=== PATIENT | female | born 1975 | race American Indian/Alaskan Native ===

== ENCOUNTER 2018-01-10 11:16 | Emergency (ER) | payer MEDICAID ==
[2018-01-10 11:16] VITALS: BMI 35.9
[2018-01-10 11:20] VITALS: O2SAT 100
[2018-01-10] MEDS ORDERED: Lidocaine 5% Patch TD STA (11:49)
[2018-01-10] MEDS ORDERED: Lidocaine 5% Patch TD ONE (11:56)
--- NOTE | 2018-01-10 12:14 | C.PDOC ---
History Of Present Illness 42-year-old female, presents to the emergency department with complaints of left lower back pain that radiates down her leg, starting yesterday. Denies nausea/vomiting, dysuria/frequency/hematuria, fever, headache, numbness/weakness , changes in bowel/bladder habits, or any other associated symptoms. No other complaints at this time. Time Seen by Provider: 01/10/18 11:36 Chief Complaint (Nursing): Lower Extremity Problem/Injury History Per: Patient History/Exam Limitations: no limitations Onset/Duration Of Symptoms: Days Current Symptoms Are (Timing): Still Present Past Medical History Reviewed: Historical Data, Nursing Documentation, Vital Signs Vital Signs: Last Vital Signs Temp 97.9 F 01/10/18 13:27 Pulse 76 01/10/18 13:27 Resp 20 01/10/18 13:27 BP 153/73 H 01/10/18 13:27 Pulse Ox 100 01/10/18 21:00 - Medical History PMH: HTN, Hypercholesterolemia, Hyperlipidemia Family History: States: No Known Family Hx - Social History Hx Alcohol Use: No Hx Substance Use: No - Immunization History Hx Tetanus Toxoid Vaccination: No Hx Influenza Vaccination: No Hx Pneumococcal Vaccination: No Review Of Systems Constitutional: Negative for: Fever Gastrointestinal: Negative for: Vomiting Genitourinary: Negative for: Incontinence Musculoskeletal: Positive for: Back Pain, Leg Pain (+buttock pain) Physical Exam - Physical Exam Appears: Well, Non-toxic, No Acute Distress Skin: Warm, Dry, No Rash Head: Normacephalic Eye(s): bilateral: PERRL Nose: Normal Oral Mucosa: Moist Lips: Normal Appearing Neck: Normal ROM Back: Other (sciatic nerve tenderness) Extremity: Other (left buttock tenderness) Neurological/Psych: Oriented x3, Normal Speech ED Course And Treatment - Laboratory Results Result Diagrams: 01/10/18 12:49 01/10/18 12:49 O2 Sat by Pulse Oximetry: 100 (RA) Pulse Ox Interpretation: Normal - Other Rad XR SPINE X-Ray: Viewed By Me, Read By Radiologist Interpretation: Accession No. : [id number]. Patient Name / ID : JOSE NEAL / [id number]. Exam Date : 01/10/2018 11:57:44 ( Approved ). Study Comment : Sex / Age : F / 42Y. Creator : Shirin Ramirez MD. Dictator : Shirin Ramirez MD. Rn Assessment : Security Checker : Shirin Ramirez MD. Approver2 : Report Date : 01/10/2018 12:21:19. My Comment : . PROCEDURE: Radiographs of the Lumbar Spine. HISTORY: Back pain. COMPARISON: No prior. FINDINGS: BONES: There is normal alignment of the lumbar vertebral bodies. There is normal lumbar lordosis. There is no acute fracture, spondylolysis or spondylolisthesis. Bone mineralization is normal. DISC SPACES : There is mild degenerative disc disease at L4-5 and L5-S1 with anterior spurring, reduced disc heights and multilevel facet arthropathy, worse at L5- S1. OTHER FINDINGS: There are no pathologic soft tissue calcifications. Both sacroiliac joints are normal. IMPRESSION: Multilevel degenerative disc disease in the lower lumbar spine, worse at L5-S1. Reassessment Condition: Improved Medical Decision Making Medical Decision Making: Plan: * Lidoderm, Valium, Toradol * U-preg * XR Spine * Reassess and Disposition Finger stick: 422. IVF, Insulin IV orederd. On re-evaluation patient feels better, blood Glucose went down, no neuro deficit. Patient was d/c home with PMD and Pain management follow up. Disposition - Disposition Referrals: Maixm Briceno MD [Staff Provider] - Toro Burgess MD [Staff Provider] - Disposition: HOME/ ROUTINE Disposition Time: 15:37 Condition: STABLE Additional Instructions: Follow up with PMD and technical sales specialist within 1-2 days. Return to ED if feel worse. Prescriptions: Lidocaine 5% [Lidoderm] 1 patch TP DAILY #30 patch Ibuprofen [Motrin Tab] 600 mg PO Q8 #30 tab diaZEpam [Valium] 2 mg PO TID #15 tab Instructions: Sciatica, Hyperglycemia, Adult Forms: [facility] (Faroese) - Clinical Impression Clinical Impression: Sciatica, Hyperglycemia due to type 1 diabetes mellitus - Scribe Statement The provider has reviewed the documentation as recorded by the Scribe (Carolyn Brown) All medical record entries made by the Scribe were at my direction and personally dictated by me. I have reviewed the chart and agree that the record accurately reflects my personal performance of the history, physical exam, medical decision making, and the department course for this patient. I have also personally directed, reviewed, and agree with the discharge instructions and disposition.
--- NOTE | 2018-01-10 12:22 | RAD ---
PROCEDURE: Radiographs of the Lumbar Spine. HISTORY: Back pain COMPARISON: No prior. FINDINGS: BONES: There is normal alignment of the lumbar vertebral bodies. There is normal lumbar lordosis. There is no acute fracture, spondylolysis or spondylolisthesis. Bone mineralization is normal. DISC SPACES: There is mild degenerative disc disease at L4-5 and L5-S1 with anterior spurring, reduced disc heights and multilevel facet arthropathy, worse at L5-S1. OTHER FINDINGS: There are no pathologic soft tissue calcifications. Both sacroiliac joints are normal. IMPRESSION: Multilevel degenerative disc disease in the lower lumbar spine, worse at L5-S1.
[2018-01-10] MEDS ORDERED: Sodium Chloride 0.9% 1,000 ML IV STA ×2 (12:38→13:49)
[2018-01-10] MEDS ORDERED: (Novolin R) Insulin Human Regular 100 units/ml vial IV STA (12:38)
[2018-01-10] MEDS ORDERED: Sodium Chloride 0.9% 1,000 ML ONE (12:51)
[2018-01-10 12:52] LABS: BASO # 0.1 K/uL (0.0-0.2); EOS # 0.2 K/uL (0.0-0.7); EOS % 1.4 % (0.0-4.0); LYMPH # 2.9 K/uL (1.0-4.3); LYMPH % 23.7 % (20.0-40.0); MEAN CELL VOLUME 87.1 fL (81.0-99.0); MEAN CORPUSCULAR HEMOGLOBIN 29.5 pg (27.0-31.0); MEAN CORPUSCULAR HGB CONC 33.9 g/dL (33.0-37.0); MEAN PLATELET VOLUME 8.4 fL (7.2-11.7); MONO # 0.6 K/uL (0.0-0.8); MONO % 5.1 % (0.0-10.0); NEUT # 8.4 K/uL (1.8-7.0); NEUT % 68.8 % (50.0-75.0); RBC 4.4 Mil/uL (3.80-5.20); RED CELL DISTRIBUTION WIDTH 14.2 % (11.5-14.5); WHITE BLOOD COUNT 12.2 K/uL (4.8-10.8)
[2018-01-10 13:28] VITALS: BP 153/73; PULSE 76; RESP 20; TEMP 97.9
[2018-01-10 13:46] LABS: ALBUMIN 3.4 g/dL (3.5-5.0); ALT/SGPT 6 U/L (9-52); AST/SGOT 20 U/L (14-36); BLOOD UREA NITROGEN 12 mg/dL (7-17); CALCIUM 8.7 mg/dl (8.6-10.4); GFR AFRICAN-AMERICAN > 60; GFR NON-AFRICAN AMERICAN > 60
[2018-01-10] MEDS ORDERED: Morphine 4 MG/ML VIAL ONE (13:47)
== END 2018-01-10 15:48 | disposition home or self-care (01) ==
LOC: C.ER 11:16
DX: M54.32 Sciatica, left side (principal); E10.65 Type 1 diabetes mellitus with hyperglycemia
CPT/HCPCS: 72100; 80053; 82009; 82948; 85025; 96361; 96372; 96374; 96375; 99284; J1885; J2270; J7040

== ENCOUNTER 2018-01-11 05:16 | Emergency (ER) | payer MEDICAID ==
[2018-01-11 05:31] VITALS: BMI 34.7
[2018-01-11 05:33] VITALS: TEMP 97.4
[2018-01-11] MEDS ORDERED: Oxycodone/Acetaminophen 5/325 mg Tab PO STA (05:49)
[2018-01-11] MEDS ORDERED: Oxycodone/Acetaminophen 5/325 mg Tab ONE (05:57)
--- NOTE | 2018-01-11 06:36 | C.PDOC ---
History Of Present Illness Pt c/o low back pain radiating down b/l LE's Time Seen by Provider: 01/11/18 05:39 Chief Complaint (Nursing): Back Pain History Per: Patient Onset/Duration Of Symptoms: Days (1) Current Symptoms Are (Timing): Still Present Quality Of Discomfort: "Pain" Severity: Moderate Associated Symptoms: denies: Incontinence, New Weakness, New Numbness Additional History Per: Prior Records Past Medical History Reviewed: Historical Data, Nursing Documentation, Vital Signs Vital Signs: Last Vital Signs Temp 97.4 F L 01/11/18 05:29 Pulse 89 01/11/18 06:38 Resp 18 01/11/18 06:38 BP 176/83 H 01/11/18 06:38 Pulse Ox 96 01/11/18 06:38 - Medical History PMH: Back Problems, Diabetes, HTN, Hypercholesterolemia, Hyperlipidemia Family History: States: Unknown Family Hx - Social History Hx Alcohol Use: No Hx Substance Use: No - Immunization History Hx Tetanus Toxoid Vaccination: No Hx Influenza Vaccination: No Hx Pneumococcal Vaccination: No Review Of Systems Except As Marked, All Systems Reviewed And Found Negative. Constitutional: Negative for: Fever, Weakness Cardiovascular: Negative for: Chest Pain Respiratory: Negative for: Shortness of Breath Gastrointestinal: Negative for: Abdominal Pain Genitourinary: Negative for: Dysuria, Incontinence Musculoskeletal: Negative for: Neck Pain Skin: Negative for: Rash Neurological: Negative for: Weakness, Numbness Physical Exam - Physical Exam Appears: Non-toxic, No Acute Distress Skin: Normal Color, Warm, Dry, No Rash Head: Atraumatic, Normacephalic Eye(s): bilateral: PERRL, EOMI Neck: Normal ROM, Supple Cardiovascular: Rhythm Regular Respiratory: Normal Breath Sounds, No Accessory Muscle Use Gastrointestinal/Abdominal: Soft, No Tenderness Back: No CVA Tenderness, No Vertebral Tenderness Extremity: Normal ROM Pulses: Left Dorsalis Pedis: Normal, Right Dorsalis Pedis: Normal Neurological/Psych: Oriented x3, Normal Motor, Normal Sensation ED Course And Treatment O2 Sat by Pulse Oximetry: 98 Pulse Ox Interpretation: Normal Reassessment Condition: Improved Disposition Counseled Patient/Family Regarding: Diagnosis, Need For Followup, Rx Given - Disposition Referrals: Arsen Resendiz MD [Staff Provider] - Disposition: HOME/ ROUTINE Disposition Time: 06:44 Condition: IMPROVED Additional Instructions: Follow up with your doctor for further evaluation and treatment, including MRI of the back. Return to the ER if you develop weakness, numbness, abdominal pain , trouble urinating, worsening of symptoms or if you have any other concerns. Prescriptions: oxyCODONE/Acetaminophen [Percocet 5/325 mg Tab] 1 tab PO QID PRN #20 tab PRN Reason: Pain Instructions: Sciatica (DC) Forms: [facility] (Greenlandic) - Clinical Impression Clinical Impression: Sciatica
[2018-01-11 06:39] VITALS: BP 176/83; PULSE 89; RESP 18
[2018-01-11 06:47] VITALS: O2SAT 98
== END 2018-01-11 06:56 | disposition home or self-care (01) ==
LOC: C.ER 05:16
DX: M54.30 Sciatica, unspecified side (principal)

== ENCOUNTER 2018-07-16 10:02 | Day surgery (SDC) | payer MEDICAID ==
[2018-07-08 08:13] VITALS: BMI 32.2
[2018-07-16] MEDS ORDERED: Oxycodone/Acetaminophen 5/325 mg Tab PO ONE (14:00)
[2018-07-16] MEDS ORDERED: Iodixanol 320 MG/ML 200 ML BOTTLE IV ONE ×2 (15:30→16:10)
[2018-07-16] MEDS ORDERED: Midazolam 2 MG/2 ML VIAL ONE ×2 (15:51→16:04)
[2018-07-16] MEDS ORDERED: Labetalol 5mg/ml (4ml) ONE (15:56)
[2018-07-16] MEDS ORDERED: Oxycodone/Acetaminophen 5/325 mg Tab ONE (17:00)
[2018-07-16] MEDS ORDERED: Oxycodone/Acetaminophen 5/325 mg Tab PO STA (17:02)
[2018-07-17 15:54] VITALS: RESP 14; O2SAT 100
== END 2018-07-16 20:08 | disposition home or self-care (01) ==
LOC: C.CATHLAB 10:02
PROVIDERS: ATTEND Internal Medicine Interventional Cardiology
DX: I73.9 Peripheral vascular disease, unspecified (principal)
CPT/HCPCS: 36247; 36415; 75625; 75716; 75774; 76937; 82948; 85651; 86140; 94770; 99152; 99153; C1760; C1766; C1769; C1887; C1894; J1644; J2250; J3010; Q9966

== ENCOUNTER 2019-01-13 10:04 | Outpatient (CLI) | payer MEDICAID | END 2019-01-13 10:05 | disposition home or self-care (01) | LOC: C.VASC 10:04 | DX: R22.42 Localized swelling, mass and lump, left lower limb (principal) ==